=== PATIENT | female | born 1995 | race Caucasian/White ===

== ENCOUNTER 2023-09-26 01:38 | Outpatient (CLI) | payer OTHER | END 2023-09-26 01:39 | disposition critical access hospital (66) | LOC: EMS 01:38 | DX: S01.01XA Laceration without foreign body of scalp, initial encounter (principal); W01.190A Fall on same level from slipping, tripping and stumbling with subsequent striking against furniture, initial encounter; Y92.000 Kitchen of unspecified non-institutional (private) residence as the place of occurrence of the external cause | CPT/HCPCS: A0425; A0429 ==

== ENCOUNTER 2023-09-26 01:49 | Emergency (ER) | payer OTHER ==
--- NOTE | 2023-09-26 02:12 | ED Physician Documentation ---
PD HPI HEAD INJURY - Stated complaint Stated Complaint: GLF, HIT HEAD ON TABLE, LOC - History obtained from History obtained from: Patient, EMS - Additional information Additional information: BIBA. HPI from patient as well as patient's friend who is in ED at patient's bedside. Patient was at a friend's house tonight and was standing in the kitchen when she had sudden onset of feeling lightheaded. She then fell, striking the back of her head against the edge of the kitchen counter. She thinks she lost consciousness, but is unsure if she lost consciousness before she fell or as result of the fall and head injury. Her chief complaint at this time is left- sided neck pain and pain along the left trapezius muscle. Review of Systems Eyes: denies: Loss of vision, Decreased vision, Photophobia Cardiac: reports: Reviewed and negative Respiratory: reports: Reviewed and negative GI: reports: Reviewed and negative : denies: Now EGA Musculoskeletal: reports: Neck pain. denies: Back pain, Extremity pain, Joint pain Neurologic: reports: Headache, Head injury, LOC. denies: Focal weakness, Numbness, Seizure, Confused, Altered mental status PD PAST MEDICAL HISTORY - Past Medical History Past Medical History: No - Allergies Allergies/Adverse Reactions: Allergies Allergy/AdvReac Type Severity Reaction Status Date / Time No Known Allergies Allergy Unknown Verified 09/26/23 04:34 PD ED PE NORMAL - Vitals Vital signs reviewed: Yes - General General: Alert and oriented X 3, No acute distress, Well developed/nourished - HEENT HEENT: PERRL, EOMI, Moist mucous membranes - Neck Neck: No bony TTP - Cardiac Cardiac: RRR, No murmur - Respiratory Respiratory: No respiratory distress, Clear bilaterally - Abdomen Abdomen: Soft, Non tender - Back Back: No spinal TTP - Neuro Neuro: Alert and oriented X 3, labor relations officer 2-12 intact, No motor deficit, No sensory deficit, Normal speech Eye Opening: Spontaneous Motor: Obeys Commands Verbal: Oriented GCS Score: 15 - Psych Psych: Normal mood, Normal affect PD ED PE EXPANDED - HEENT HEENT Visual: 1 - laceration (2 cm length) Results - Vitals Vitals: Vital Signs - 24 hr 09/26/23 09/26/23 02:05 02:30 Temperature 37 C 37 C Heart Rate 81 81 Respiratory 16 16 Rate Blood Pressure 113/70 113/70 O2 Saturation 97 97 Oxygen O2 Source Room air - Labs Labs: Laboratory Tests 09/26/23 09/26/23 03:18 03:18 WBC 5.0 RBC 4.04 L Hgb 12.0 Hct 37.0 MCV 91.6 MCH 29.7 MCHC 32.4 RDW 13.2 Plt Count 275 MPV 10.4 Neut # (Auto) 3.4 Lymph # (Auto) 1.1 L Harney # (Auto) 0.4 Eos # (Auto) 0.0 Baso # (Auto) 0.1 Absolute Nucleated RBC 0.00 Nucleated RBC % 0.0 Sodium 142 Potassium 3.9 Chloride 109 Carbon Dioxide 25 Anion Gap 8.0 BUN 14 Creatinine 0.9 Estimated GFR (MDRD) 76 L Glucose 120 H Calcium 9.2 Total Bilirubin 0.2 AST 16 ALT 24 Alkaline Phosphatase 37 L Total Protein 6.3 L Albumin 3.9 Globulin 2.4 Albumin/Globulin Ratio 1.6 Lipase 40 - Rads (name of study) CTH Relevant Findings:: Prelim report reviewed, See rad report CT cervical spine Relevant Findings:: Prelim report reviewed, See rad report Procedures - Laceration (location) Scalp Length in cm: 2 Wound type: Linear, Into subcut fat, Clean Anesthesia: Lidocaine 1%, Volume - enter ml (6 ml) Wound preparation: Chlorhexadine, Wound explored Skin layer closure: Moise Other: Patient tolerated well, No complications, Neurovascular intact, Tetanus booster given PD Medical Decision Making - ED course Complexity details: reviewed results, re-evaluated patient, considered differential, d/w patient ED course: Unremarkable CBC, ER abdominal panel. No abnormalities on CTH, CT cervical spine. Patient says she had taken mushrooms and used marijuana tonight, which might have caused, or contributed, to her falling. She is AAOx3 on initial evaluation as well as on reevaluation prior to discharge . Scalp laceration is repaired with moise as outlined in procedure note, above. Return precautions are discussed. Advised her to follow-up with her PCP in 7 to 10 days for removal of the moise. Alternatively, she can go to a walk-in clinic, urgent care, or return to the emergency department. Departure - Departure Disposition: 01 Home, Self Care Clinical Impression: Syncope, Scalp laceration Condition: Good Instructions: ED Laceration Scalp Stitch Or Stap, ED Fainting Unkn Cause Comments: There were no concerning findings on the blood tests performed tonight. The CT scans of your head and neck were unremarkable; there was no evidence of any acute injury (such as bleeding or fracture) on these scans. The scalp laceration was closed using moise; you will need to follow-up in 7 to 10 days to have these removed. Contact your primary care provider's office when they open later this morning to arrange for an appointment within that timeframe. If this cannot be arranged, other options would include walk-in cl inic, urgent care, or returning to the emergency department.
[2023-09-26 02:33] VITALS: BP 113/70; O2SAT 97
[2023-09-26] MEDS ORDERED: SODIUM CHLORIDE 0.9% 1,000 ML IV STA (02:48)
[2023-09-26 03:22] LABS: BASOPHILS # (AUTO) 0.1 10^3/uL (0.0-0.1); BASOPHILS % (AUTO) 1.2 %; EOSINOPHILS % (AUTO) 0.4 %; LYMPHOCYTES # (AUTO) 1.1 10^3/uL (1.5-3.5); MEAN CORPUSCULAR HEMOGLOBIN 29.7 pg (27.0-31.0); MEAN CORPUSCULAR HGB CONC 32.4 g/dL (32.0-36.0); MEAN CORPUSCULAR VOLUME 91.6 fL (81.0-99.0); MEAN PLATELET VOLUME 10.4 fL (7.9-10.8); MONOCYTES # (AUTO) 0.4 10^3/uL (0.0-1.0); MONOCYTES % (AUTO) 7.8 %; NEUTROPHILS # (AUTO) 3.4 10^3/uL (1.5-6.6); NEUTROPHILS % (AUTO) 68.4 %; PLT - PLATELET COUNT 275 10^3/uL (130-450); RED BLOOD COUNT 4.04 10^6/uL (4.20-5.40); RED CELL DISTRIBUTION WIDTH 13.2 % (12.0-15.0)
[2023-09-26 03:39] LABS: ALBUMIN 3.9 g/dL (3.2-5.5); ALBUMIN/GLOBULIN RATIO 1.6 (1.0-2.2); BILIRUBIN,TOTAL 0.2 mg/dL (0.2-1.0); CALCIUM 9.2 mg/dL (8.5-10.3); CREATININE 0.9 mg/dL (0.6-1.3); POTASSIUM 3.9 mmol/L (3.5-4.5); TOTAL PROTEIN 6.3 g/dL (6.4-8.9)
[2023-09-26] MEDS ORDERED: LIDOCAINE 1% 2 ML VIAL SUBQ STA (05:12)
[2023-09-26] MEDS ORDERED: TETANUS/DIPHTHERIA/PERTUSSIS 0.5 ML SYRINGE IM ONE (05:13)
--- NOTE | 2023-09-26 07:15 | CT Report ---
PROCEDURE: Head WO INDICATIONS: syncope, head injury TECHNIQUE: Noncontrast 4.5 mm thick angled axial sections acquired from the foramen magnum to the vertex. For r adiation dose reduction, the following was used: automated exposure control, adjustment of mA and/or kV according to patient size. COMPARISON: None. FINDINGS: Image quality: Excellent. CSF spaces: Basal cisterns are patent. No extra-axial fluid collections. Ventricles are normal in size and shape. Brain: No midline shift. No intracranial masses or hemorrhage. Singh-white matter interface is norm al. Skull and face: Calvarium and visualized facial bones are intact, without suspicious lesions. Sinuses: Visualized sinuses and mastoids are clear. IMPRESSION: No acute intracranial pathology. No acute calvarial fractures. No significant discrepancy with initial interpretation by overnight radiologist. Reviewed by: Kalin Joiner MD on 09/26/2023 7:13 AM [facility] Approved by: Kalin Joiner MD on 09/26/2023 7:13 AM [facility] Station ID: [id number]
--- NOTE | 2023-09-26 07:18 | CT Report ---
PROCEDURE: Cervical Spine WO INDICATIONS: syncope, head injury, left-sided neck pain TECHNIQUE: Noncontrast 3 mm thick sections acquired from the skull base to the T4 level. Sagittal and coronal r eformats were then constructed. For radiation dose reduction, the following was used: automated exp osure control, adjustment of mA and/or kV according to patient size. COMPARISON: None. FINDINGS: Image quality: Excellent. Bones: No acute fractures or dislocations. Straightening of cervical lordosis with gentle reversal c entered at C5. No acute compression fractures of the vertebral bodies. Craniocervical junction is int act. C1-C2 relationship is preserved. Visualized superior ribs are intact. Soft tissues: Prevertebral soft tissues are normal in thickness. No paravertebral hematomas. No ap ical pneumothoraces. IMPRESSION: CT cervical spine without acute fracture or traumatic malalignment. Straightening of cervical lordosi s with gentle reversal likely related to positioning and/or concurrent muscle spasms. Findings are concordant with preliminary interpretation provided by [facility]. Reviewed by: Kalin Joiner MD on 09/26/2023 7:17 AM PST Approved by: Kalin Joiner MD on 09/26/2023 7:17 AM PST Station ID: [id number]
== END 2023-09-26 05:50 | disposition home or self-care (01) ==
LOC: ED 01:49
DX: S01.01XA Laceration without foreign body of scalp, initial encounter (principal); W19.XXXA Unspecified fall, initial encounter; Y92.009 Unspecified place in unspecified non-institutional (private) residence as the place of occurrence of the external cause; Z23 Encounter for immunization
CPT/HCPCS: 12001; 36415; 80053; 83690; 85025; 90471; 99283; 99284